=== PATIENT | female | born 1960 ===

== ENCOUNTER 2016-08-13 15:15 | Emergency (ER) | payer BC, MEDICARE ==
[2016-08-13 15:20] VITALS: TEMP 97.7; O2SAT 99
[2016-08-13 16:36] VITALS: BP 124/60; PULSE 72; RESP 18
[2016-08-13 16:44] LABS: BASO % 0.3 % (0.0-2.0); EOS # 0.1 K/uL (0.0-0.7); EOS % 1.3 % (0.0-4.0); HEMATOCRIT 44.3 % (34.0-47.0); LYMPH % 45.7 % (20.0-40.0); MEAN CELL VOLUME 84.6 fl (81.0-99.0); MEAN CORPUSCULAR HEMOGLOBIN 27.2 pg (27.0-31.0); MEAN CORPUSCULAR HGB CONC 32.2 g/dL (33.0-37.0); MEAN PLATELET VOLUME 9.5 fl (7.2-11.7); MONO # 0.5 K/uL (0.0-0.8); MONO % 7.4 % (0.0-10.0); NEUT # 2.9 K/uL (1.8-7.0); NEUT % 45.3 % (50.0-75.0); NRBC % 0.1 % (0.0-0.0); RED CELL DISTRIBUTION WIDTH 16.1 % (11.5-14.5); WHITE BLOOD COUNT 6.5 K/uL (4.8-10.8)
--- NOTE | 2016-08-13 16:53 | RAD ---
HISTORY: cough COMPARISON: Chest x-ray performed 11/01/08 TECHNIQUE: Chest PA and lateral FINDINGS: LUNGS: No focal consolidation. Please note that chest x-ray has limited sensitivity for the detection of pulmonary masses. PLEURA: No significant pleural effusion identified. No definite pneumothorax . CARDIOVASCULAR: Heart size appears within normal limits. Atherosclerotic calcifications of the aorta. OSSEOUS STRUCTURES: Osseous demineralization. Degenerative changes. VISUALIZED UPPER ABDOMEN: Right upper quadrant surgical clips. OTHER FINDINGS: None. IMPRESSION: No focal consolidation, significant pleural effusion, or definite pneumothorax identified.
[2016-08-13 16:59] LABS: ALB/GLOB RATIO 1.2 (1.0-2.1); ALKALINE PHOSPHATASE 96 U/L (38-126); ALT/SGPT 49 U/L (9-52); AST/SGOT 52 U/L (14-36); BILIRUBIN,TOTAL 0.7 mg/dl (0.2-1.3); BLOOD UREA NITROGEN 13 mg/dl (7-17); CALCIUM 9.7 mg/dL (8.4-10.2); CARBON DIOXIDE 29 mmol/L (22-30); CHLORIDE 102 mmol/L (98-107); GFR AFRICAN-AMERICAN > 60; GLUCOSE,RANDOM 97 mg/dL (65-105); SODIUM 145 mmol/l (132-148); TOTAL PROTEIN 8.2 G/DL (6.3-8.2)
--- NOTE | 2016-08-13 17:05 | ED PDOC ---
HPI: General Adult Time Seen by Provider: 08/13/16 16:08 Chief Complaint (Nursing): Weakness/Neurological Deficit Chief Complaint (Provider): HTN History Per: Patient History/Exam Limitations: no limitations Additional Complaint(s): 55yo F in Ed for eval of elevated BP. PT with hx of HTN with recent increased in BP medication(pt unsure which). was seen at her pmd office today and had elevated systolic BP of 210 with unknown diastolic. pt was given medication in office" 6 pills", but doesn't know the name of he medication, after which was d/ c home with new Rx for HTn, which again-pt doesn't know of what. Pt decided to come to ED for further eval of HTN and her developed chills. PT admits to some blurry vison this AM. no slurred speech, change in MS, speech, gait, LOC, CP, SOB Past Medical History Reviewed: Historical Data, Nursing Documentation, Vital Signs Vital Signs: Last Vital Signs Temp 97.7 F 08/13/16 15:16 Pulse 72 08/13/16 16:35 Resp 18 08/13/16 16:35 BP 124/60 08/13/16 16:35 Pulse Ox 99 08/13/16 17:06 - Medical History PMH: HTN - Family History Family History: States: No Known Family Hx - Allergies Allergies/Adverse Reactions: Allergies Allergy/AdvReac Type Severity Reaction Status Date / Time No Known Allergies Allergy Verified 08/13/16 15:16 Review of Systems ROS Statement: Except As Marked, All Systems Reviewed And Found Negative Constitutional: Positive for: Chills. Negative for: Fever Cardiovascular: Negative for: Chest Pain, Palpitations, Orthopnea, Light Headedness Respiratory: Negative for: Cough, SOB with Exertion Gastrointestinal: Negative for: Nausea, Vomiting, Abdominal Pain Physical Exam - Reviewed Nursing Documentation Reviewed: Yes Vital Signs Reviewed: Yes - Physical Exam Appears: Positive for: Non-toxic (some chills), No Acute Distress Head Exam: Positive for: ATRAUMATIC, NORMAL INSPECTION, NORMOCEPHALIC Skin: Positive for: Normal Color, Warm, DRY Eye Exam: Positive for: EOMI, Normal appearance, PERRL ENT: Positive for: Normal ENT Inspection Neck: Positive for: Normal, Painless ROM Cardiovascular/Chest: Positive for: Regular Rate, Rhythm Respiratory: Positive for: CNT, Normal Breath Sounds Gastrointestinal/Abdominal: Positive for: Normal Exam, Bowel Sounds, Soft Back: Positive for: Normal Inspection Extremity: Positive for: Normal ROM Neurologic/Psych: Positive for: Alert, Oriented - Laboratory Results Result Diagrams: 08/13/16 16:20 08/13/16 16:20 - ECG O2 Sat by Pulse Oximetry: 99 Medical Decision Making Medical Decision Making: Pt with unremarkable labs in ED. unremarkable EKG and normal Chest xray. BP is normal and HR is stable. at this time no indication for further medical intervention. pt strongly advised to take Rx medication and f.u with pmd. Disposition - Clinical Impression Clinical Impression: Hypertension - Patient ED Disposition Is Patient to be Admitted: No Counseled Patient/Family Regarding: Studies Performed, Diagnosis, Need For Followup, Rx Given - Disposition Disposition: Routine/Home Disposition Time: 17:20 Condition: STABLE Instructions: Hypertension (ED) Print Language: AZERI
--- NOTE | 2016-08-15 18:20 | CARD ---
APPROVED REPORT EKG Measurement Heart [id number] <Conclusion> Normal sinus rhythm Minimal voltage criteria for LVH, may be normal variant Borderline ECG
== END 2016-08-13 18:33 | disposition home or self-care (01) ==
LOC: H.ER 15:15
DX: I10 Essential (primary) hypertension (principal)